=== PATIENT | female | born 1985 | race Two or more races ===

== ENCOUNTER 2019-02-23 00:17 | Emergency (ER) | payer OTHER ==
[~2019-02-23] VITALS: Ht 157.5 cm; Wt 70.5 kg
[2019-02-23] MEDS ORDERED: QUET50TA PO (00:51)
[2019-02-23] MEDS ORDERED: LITH450CRT PO (00:51)
[2019-02-23] MEDS ORDERED: TEMA15CA PO (00:51)
[2019-02-23] MEDS ORDERED: PRED2.5T PO (00:52)
[2019-02-23 01:29] LABS: BASOPHILS % (AUTO) 0.2 % (0.0-2.0); EOSINOPHILS % (AUTO) 2.1 % (1.0-6.0); HEMATOCRIT 36.2 % (36-46); HEMOGLOBIN 11.3 g/dL (12.0-16.0); LYMPHOCYTES # (AUTO) 2.2 K/uL (1.0-4.8); LYMPHOCYTES % (AUTO) 26.6 % (22.0-44.0); MEAN CORPUSCULAR HEMOGLOBIN 23.9 pg (26.0-34.0); MEAN CORPUSCULAR HGB CONC 31.1 G/dL (31.0-37.0); MEAN CORPUSCULAR VOLUME 77 fL (80-100); MONOCYTES # (AUTO) 0.8 K/uL (0.1-1.0); MONOCYTES % (AUTO) 10.2 % (2.0-9.0); NEUTROPHILS % (AUTO) 60.9 % (40.0-70.0); PLATELET COUNT (AUTO) 356 K/uL (150-450); RED BLOOD CELL COUNT(AUTO) 4.71 MIL/uL (4.00-5.20); RED CELL DISTRIBUTION WIDTH 16.1 % (11.5-14.5)
[2019-02-23 01:38] LABS: ANION GAP 11 mmol/L (8-16); CARBON DIOXIDE 26 mmol/L (22-29); CHLORIDE 101 mmol/L (98-107); CREATININE 0.87 mg/dL (0.60-1.30); GLOMERULAR FILTR. RATE CALC > 60 mL/min (>60); GLUCOSE,RANDOM 167 mg/dL (70-110); SODIUM SERUM 138 mmol/L (136-145); UREA NITROGEN, BLOOD 10 mg/dL (7-18)
[2019-02-23 01:48] LABS: ALANINE AMINOTRANSFERASE 18 U/L (12-78); ALBUMIN 3.3 g/dL (3.4-5.0); ALKALINE PHOSPHATASE 86 U/L (46-116); ASPARTATE AMINOTRANSFERASE 8 U/L (15-37); BILIRUBIN,TOTAL 0.2 mg/dL (0.1-1.0); HCG,QUANTITATIVE < 1 mIU/mL (0-6); TOTAL PROTEIN, SERUM 7.4 g/dL (6.4-8.2)
[2019-02-23] MEDS ORDERED: LORazepam 1 MG TABLET PO ONE ×2 (02:00→02:15)
[2019-02-23] MEDS ORDERED: ONDANSETRON HCL 4 MG TABLET PO ONE (04:45)
[2019-02-23 05:35] VITALS: BP 132/70
== END 2019-02-23 05:56 ==
LOC: EMS 00:17
DX: R45.851 Suicidal ideations (principal); F31.9 Bipolar disorder, unspecified; F11.90 Opioid use, unspecified, uncomplicated; F17.290 Nicotine dependence, other tobacco product, uncomplicated; Z79.899 Other long term (current) drug therapy
CPT/HCPCS: 36415; 80053; 84702; 85025; 99285; 99406; G0480; Q0162